=== PATIENT | male | born 1955 | race Caucasian/White ===

== ENCOUNTER 2022-08-08 07:31 | Outpatient (CLI) | payer BC, SELFPAY | END 2022-08-08 07:32 | disposition home or self-care (01) | LOC: NFLDREF 11:12 | PROVIDERS: PCP Internal Medicine; Referring Provider Internal Medicine; Visit Provider Internal Medicine | DX: Z00.00 Encounter for general adult medical examination without abnormal findings (principal); E78.5 Hyperlipidemia, unspecified; N40.0 Benign prostatic hyperplasia without lower urinary tract symptoms; Z13.1 Encounter for screening for diabetes mellitus | CPT/HCPCS: 80061; 82947; 84153 ==

== ENCOUNTER 2023-09-10 07:27 | Outpatient (CLI) | payer MEDICARE, SELFPAY | END 2023-09-10 07:28 | disposition home or self-care (01) | LOC: NFLDREF 09-11 08:51 | PROVIDERS: PCP Internal Medicine; Referring Provider Internal Medicine; Visit Provider Internal Medicine | DX: N40.0 Benign prostatic hyperplasia without lower urinary tract symptoms (principal); E78.5 Hyperlipidemia, unspecified; Z12.5 Encounter for screening for malignant neoplasm of prostate | CPT/HCPCS: 80061; G0103 ==

== ENCOUNTER 2023-10-05 20:55 | Outpatient (CLI) | payer MEDICARE, SELFPAY ==
--- OUTSIDE RECORDS SUMMARY | 2023-10-05 20:59 | XMS_ITS | Clinical Summary ---
Author Organization [facility] Address [address] [place] [address] Care Team Providers Care Skein Winder Name Role Phone Flor Wise MD Primary Care Provider +1- [phone] Source Comments You are receiving this document as you are listed as the primary care provider,follow-up provider, or the patient has been referred to you for consultation.This is in compliance with the Medicare and[facility] EHR Incentive Program,which states Providers who transition their patient to another setting of careor provider of care or refers their patient to another provider of care shouldprovide summary care record for each transition of care or referral. [facility] Allergies No known active allergies Medications Medication Sig Dispensed Refills Start Date End Date Status pravastatin (AKA PRAVACHOL) 40 MG tablet Take 40 mg by mouth daily (every 24 hours). 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, both eyes 01/06/2020 Pseudophakia 01/06/2020 Myopia with astigmatism and presbyopia, bilatera l 01/06/2020 Family History Medical History Relation Name Comments Cataract Father Hypertension Father Cataract Mother Hypertension Mother Amblyopia/Strabismus Negative Family History Blindness Negative Family History Cancer Negative Family History Diabetes Negative Family History Glaucoma Negative Family History Macular Degeneration Negative Family History Retinal Detachment Negative Family History Stroke Negative Family History Thyroid Disorder Negative Family History Relation Name Status Comments Father Mother Social History Tobacco Use Types Packs/Day Years Used Date Smoking Tobacco: Former Smokeless Tobacco: Never Alcohol Use Standard Drinks/Week Comments Yes 0 (1 standard drink = 0.6 oz pur e alcohol) occ Sex and Gender Information Value Date Recorded Sex Assigned at Not on file Gender Identity Not on file Sexual Orientation Not on file Plan of Treatment Health Maintenance Due Date Last Done Comments Colon Cancer Screening Plan Due 1955 Hep C Screening (Preventive Services) 1955 PSA Screening Discussion 1955 Adult Preventive Visit 06/21/1975 Cholesterol 1992 Pneumococcal 65+ Yrs (1 - PCV) 2022 COVID-19 Vaccine (5 - 2022- season) 2022 12/31/2021, 01/17/2021, 06/03/2020, Additional history exists Influenza (#1) 2023 01/03/2022, 02/2020, 12/10/2019, Additional history exists DTaP/Tdap/Td (3 - Tdap) 07/02/2031 07/01/2021, 10/02 HepA Aged Out 07/31/2014, 10/17, 11/15/2012 No longer eligible based on patient's age to complete this topic Zoster/Shingles Completed 11/26/2019, 08/30/2019 HepB Aged Out No longer eligi ble based on patient's age to complete this topic Hib Aged Out No longer eligi ble based on patient's age to complete this topic IPV (Polio) Aged Out No longer eligi ble based on patient's age to complete this topic MCV4 Aged Out No longer eligi ble based on patient's age to complete this topic Care Teams Skein Winder Relationship Specialty Start Date End Date Flor Wise MD [address] [facility] [address] [facility] - General 10/25/14
--- OUTSIDE RECORDS SUMMARY | 2023-10-05 20:59 | XMS_ITS | Clinical Summary ---
Author Organization [employer] [facility] Address [place], [place] [address] Care Team Providers Care Cat Breeder Name Role Phone Flor Wise MD Primary Care Provider +1- [phone] Allergies No known active allergies Medications Medication Sig Dispensed Refills Start Date End Date Status pravastatin (PRAVACHOL) 40 mg tablet Take 40 mg by mouth at bedtime. Active oxybutynin XL (DITROPAN XL) 5 mg CR tabletIndications:Uri nary frequency Take 1 tablet by mouth once daily. 30 tablet 11 11/10/2016 Active Active Problems Problem Noted Date Diagnosed Date Benign non-nodular prostatic hyperplasia with lower urinary tract symptoms 11/10/2016 Urinary frequency 11/10/2016 Social History Tobacco Use Types Packs/Day Years Used Date Smoking Tobacco: Former Comments:quit 5 years Alcohol Use Standard Drinks/Week Comments Yes 0 (1 standard drink = 0.6 oz pur e alcohol) 2 drinks/day Sex and Gender Information Value Date Recorded Sex Assigned at Not on file Gender Identity Not on file Sexual Orientation Not on file Obstetrics History Last Filed Vital Signs Vital Sign Reading Time Taken Comments Blood Pressure 123/78 11/10/2016 8:14 AM CDT Pulse 89 11/10/2016 8:14 AM CDT Temperature 36.6 ??C (97.8 ??F) 11/10/2016 8:14 AM CD T Respiratory Rate 18 11/10/2016 8:14 AM CDT Oxygen Saturation 97% 12/06/2011 12:45 PM CDT Inhaled Oxygen Concentration - - Weight 89.4 kg (197 lb) 11/10/2016 8:14 AM CDT Height 180.3 cm (5' 11) 12/06/2011 9:29 AM CDT Body Mass Index 27.48 12/06/2011 9:29 AM CDT Plan of Treatment Health Maintenance Due Date Last Done Comments Tdap 1968 Depression screening for age 12+ 1969 BMI (ht and wt on same day) for age 18+ 06/21/1975 Hepatitis C screening for age 18-79 06/21/1975 Tetanus booster 1977 Colonoscopy through age 75 2002 Lipids for age 45-75 2002 Zoster (shingles) series for age 50+ (1 of 2) 06/21/19 08 Pneumococcal series for age 65+ (1 of 1 - PCV) 023 COVID-19 vaccine series (1 - 2022- season) 3 Influenza for age 65+ 10/18/2023 Medical Devices Implanted Type Area Furniture Cleaner Device Identifier Shelf Expiration Date Model / Serial / Lot Sleeve Oval [id number] - [id number] Implanted:Qty: 1 on 06/25/2011 by Jeet Mojica MD at [facility] Right: [employer] 09/16/2017 S3084# / / [id number] Strip Silcn [id number] btician - [id number] Implanted:Qty: 1 on 06/25/2011 by Jeet Mojica MD at [facility] Right: [employer] 11/16/2016 S4050# / / [id number] Strip Silcn 1.25x4.0x125 [id number] - [id number] Implanted:Qty: 1 on 12/06/2011 at [facility] Left: [employer] 04/07/2018 S2971# / / [id number] Sleeve Silcn [id number] - [id number] Implanted:Qty: 1 on 12/06/2011 at [facility] Left: [employer] 05/05/2018 S3071# / / [id number] Advance Directives * Full Code (Latest Code Status on File) Date Activated Date Inactivated Comments 12/06/2011 9:26 AM 12/06/2011 3:09 PM * Full Code Date Activated Date Inactivated Comments 06/25/2011 10:23 AM 06/25/2011 4:10 PM Care Teams Cat Breeder Relationship Specialty Start Date End Date Flor Wise MD [address] [place] [address] [place] [address] PCP - General Internal Medicine 06/25/11
== END 2023-10-05 20:56 | disposition home or self-care (01) ==
LOC: SLEEP 20:57
PROVIDERS: PCP Internal Medicine
DX: G47.33 Obstructive sleep apnea (adult) (pediatric) (principal); E66.3 Overweight; Z68.28 Body mass index [BMI] 28.0-28.9, adult
CPT/HCPCS: 95810; A9270

== ENCOUNTER 2023-10-15 11:25 | Outpatient (CLI) | payer MEDICARE, SELFPAY ==
--- OUTSIDE RECORDS SUMMARY | 2023-10-15 11:27 | XMS_ITS | Clinical Summary ---
Author Organization [facility] Address [address] [place] [address] Care Team Providers Care Electrician Aircraft Name Role Phone Flor Wise MD Primary Care Provider +1- [phone] Source Comments You are receiving this document as you are listed as the primary care provider,follow-up provider, or the patient has been referred to you for consultation.This is in compliance with the Medicare and[facility] EHR Incentive Program,which states Providers who transition their patient to another setting of careor provider of care or refers their patient to another provider of care shouldprovide summary care record for each transition of care or referral. [facility] Allergies No known active allergies Medications Medication [...] age to complete this topic Care Teams Electrician Aircraft Relationship Specialty Start Date End Date Flor Wise MD [address] [place] [place] [address] [facility] - General 10/25/14
--- OUTSIDE RECORDS SUMMARY | 2023-10-15 11:27 | XMS_ITS | Clinical Summary ---
Author Organization [employer] [facility] Address [place], [place] [address] Care Team Providers Care Category Specialist Name Role Phone Flor Wise MD Primary Care Provider +1- [phone] Allergies No known active allergies Medications Medication [...] 65+ 10/18/2023 Medical Devices Implanted Type Area Certified Registered Nurse Anesthetist Device Identifier Shelf Expiration Date Model / Serial / Lot Sleeve Oval S3084 - [id number] Implanted:Qty: 1 on 06/25/2011 by Jeet Mojica MD at [facility] Right: [employer] 09/16/2017 S3084# / / [id number] Strip Silcn [id number] btician - [id number] Implanted:Qty: 1 on 06/25/2011 by Jeet Mojica MD at [facility] Right: [employer] 11/16/2016 S4050# / / [id number] Strip Silcn 1.25x4.0x125 [id number] - [id number] Implanted:Qty: 1 on 12/06/[address] [facility] Left: [employer] 04/07/2018 S2971# / / [id number] Sleeve Silcn [id number] - [id number] Implanted:Qty: 1 on 12/06/[address] [facility] Left: [employer] 05/05/2018 S3071# / / [id number] Advance Directives * Full Code (Latest Code Status on File) Date Activated Date Inactivated Comments 12/06/2011 9:26 AM 12/06/2011 3:09 PM * Full Code Date Activated Date Inactivated Comments 06/25/2011 10:23 AM 06/25/2011 4:10 PM Care Teams Category Specialist Relationship Specialty Start Date End Date Flor Wise MD [address] [place] [address] [place] [address] PCP - General Internal Medicine 06/25/11
== END 2023-10-15 11:26 | disposition home or self-care (01) ==
LOC: NFLDREF 11:26
PROVIDERS: PCP Internal Medicine; Visit Provider Internal Medicine
DX: I10 Essential (primary) hypertension (principal)
CPT/HCPCS: 80048

== ENCOUNTER 2023-10-26 20:15 | Outpatient (CLI) | payer MEDICARE, SELFPAY ==
--- OUTSIDE RECORDS SUMMARY | 2023-10-26 20:18 | XMS_ITS | Clinical Summary ---
Author Organization [facility] Address [address] [place] [address] Care Team Providers Care Irrigation Supervisor Name Role Phone Flor Wise MD Primary Care Provider +1- [phone] Source Comments You are receiving this document as you are listed as the primary care provider,follow-up provider, or the patient has been referred to you for consultation.This is in compliance with the Medicare and[facility] EHR Incentive Program,which states Providers who transition their patient to another setting of careor provider of care or refers their patient to another provider of care shouldprovide summary care record for each transition of care or referral. [facility] Allergies No known active allergies Medications Medication [...] 2022 COVID-19 Vaccine (5 - 2022- season) 2023 12/31/2021, 01/17/2021, 06/03/2020, Additional history exists Influenza (#1) 2023 01/03/2022, 1102/2020, 12/10/2019, Additional history exists DTaP/Tdap/Td (3 - [...] age to complete this topic Care Teams Irrigation Supervisor Relationship Specialty Start Date End Date Flor Wise MD [address] [place] [place] [address] [facility] - General 10/25/14
--- OUTSIDE RECORDS SUMMARY | 2023-10-26 20:18 | XMS_ITS | Clinical Summary ---
Author Organization [employer] [facility] Address [place], [place] [address] Care Team Providers Care Investment Analyst Name Role Phone Flor Wise MD Primary Care Provider +1- [phone] Allergies No known active allergies Medications Medication [...] 1 - PCV) 023 COVID-19 vaccine series ( - 2022- season) 4 Influenza for age 65+ 10/18/2023 Medical Devices Implanted Type Area Solderer Barrel Ribs Device Identifier Shelf Expiration Date Model / Serial / Lot Sleeve Oval S3084 - [id number] Implanted:Qty: 1 on 06/25/2011 by Jeet Mojica MD at [facility] Right: [employer] 09/16/2017 S3084# / / [id number] Strip Silcn [id number] btician - [id number] Implanted:Qty: 1 on 06/25/2011 by Jeet Mojica MD at [facility] Right: [employer] 11/16/2016 S4050# / / [id number] Strip Silcn 1.25x4.0x125 [id number] - [id number] Implanted:Qty: 1 on 12/06/2011 at [facility] Left: [employer] 04/07/2018 S2971# / / [id number] Sleeve Silcn [id number] - [id number] Implanted:Qty: 1 on 12/06/2011 at [facility] Left: [employer] 05/05/2018 S3071# / / [id number] Advance Directives * Full Code (Latest Code Status on File) Date Activated Date Inactivated Comments 12/06/2011 9:26 AM 12/06/2011 3:09 PM * Full Code Date Activated Date Inactivated Comments 06/25/2011 10:23 AM 06/25/2011 4:10 PM Care Teams Investment Analyst Relationship Specialty Start Date End Date Flor Wise MD [address] [place] [address] [place] [address] PCP - General Internal Medicine 06/25/11
== END 2023-10-26 20:16 | disposition home or self-care (01) ==
PROVIDERS: PCP Internal Medicine; Visit Provider Internal Medicine
DX: G47.33 Obstructive sleep apnea (adult) (pediatric) (principal)
CPT/HCPCS: 95811

== ENCOUNTER 2024-08-05 07:45 | Outpatient (CLI) | payer MEDICARE, SELFPAY | END 2024-08-05 07:46 | disposition home or self-care (01) | LOC: NFLDREF 08-08 17:08 | PROVIDERS: PCP Internal Medicine; Referring Provider Internal Medicine; Visit Provider Internal Medicine | DX: E78.5 Hyperlipidemia, unspecified (principal); Z12.5 Encounter for screening for malignant neoplasm of prostate | CPT/HCPCS: 80048; 80061; G0103 ==